=== PATIENT | female | born 1985 | race Caucasian/White ===

== ENCOUNTER 2017-11-19 05:23 | Inpatient (IN) ==
--- NOTE | 2017-11-19 04:47 | OB/GYN History & Physical ---
Date of Encounter: 11/19/17 Time of Encounter: 04:41 Assessment and Plan (1) 37 weeks gestation of Current visit: Yes Status: Acute admitted for labor evaluation (2) Tobacco use affecting in third trimester, antepartum Current visit: Yes Status: Acute Smoking cessation information given History of Present Illness Chief complaint: Contractions HPI: Ms. Lockwood is a 32 year old female at 37w5d presents to labor and delivery with complaints of contractions that started about 2 hours ago that have become stronger in the last 30 min. Patient also reports leaking fluid. Patient reports decreased movement as well. Patient denies VB. Patient reports last SVE was [address] Dinh. Speculum exam on admission per CNM: Negative pooling, negative nitrazine. SVE /-1 with bulging membranes. No fluid return noted with exam. Blood type: A Positive Rubella: Immune Hep B: Nonreactive RPR: Negative GBS: Negative Past Med Surg Social Fam HX - Past Medical History Source: patient Medical history: no medical history Psychiatric history: depression - Past Surgical History Surgical History: appendectomy, other (Dilatation and curettage) - Social History Smoking Status: Current every day smoker Smokeless Tobacco Status: No Alcohol use: none Drug use: none Activity Level: Independent ambulation Recent Out of Country Travel Within the Last 8 Weeks: No Exposure or Possible Exposure to Illness During Travel: No - Family History Mother Living Status: Still Living Hx Family Cardiac Disorders: Yes (MOTHER HAD CERVICAL CANCER) Hx Family Respiratory Disorders: Yes Hx Family Cancer: No Hx Family GI Disorders: No Hx Family Endocrine Disorder: No Hx Family Neuromuscular Disorders: No Hx Family Neurologic Disorders: No Hx Family HEENT Disorders: No Hx Family Autoimmune Disorders: No Obstetrical History - Pregnancies : 3 Para: 2 Term: 2 : 0 Ab's: 0 Livin Medications and Allergies Vit/FA 1 each PO DAILY tablet 01/10/16 [Rx] Oseltamivir [Tamiflu] 75 mg PO BID #10 capsule 08/31/17 [Rx] 3 Allergy/AdvReac Type Severity Reaction Status Date / Time No Known Allergies Allergy Verified 06/06/17 18:36 Review of System OB - Constitutional Constitutional ROS IM: no fever(s), no headache(s) - Cardiovascular Cardiovascular: no chest pain, no leg edema, no palpitations, no syncope - Respiratory Respiratory: no cough - Gastrointestinal Gastrointestinal: no diarrhea, no heartburn, no nausea, no vomiting - Genitourinary Genitourinary: vaginal discharge (per HPI), no abnormal vaginal bleeding, no dysuria, no flank pain, no urinary frequency, no vaginal odor, no vaginal pruritis Exam - Constitutional Constitutional: well developed, well nourished, average body habitus - HEENT HEENT: Normocephaly, Mucus Membranes Moist - Neck Neck exam: full ROM, supple - Lungs Respiratory exam: CTAB - Cardiovascular Cardiovascular exam: RRR, +S1, +S2 - Abdomen Abdomen: Present: bowel sounds normal, gravid, non tender - Extremities Extremities exam: full ROM, normal inspection, pedal edema Deep Tendon Reflex Grade: 2+ Normal - Vagina Vagina: Present: normal moisture - Cervix Cervix: Present: discharge Dilation: 2 Effacement: 80 Station: -1 - Uterus Uterus exam: Present: normal size, normal contour - Anus/Rectum Anus/Rectum: Present: normal perianal skin - Comments Comments: speculum exam: small amount white discharge noted. NO pooling, Negative nitrazine. FHR 145 bpm moderate amount of variability +15x15 accels no decels noted. contractions 2-3 min apart. Cat. 1 tracing. Results All other labs normal. - VTE Reasons for not Prescribing Prophylaxis: Treatment not Indicated - Low risk for VTE
[2017-11-19 05:09] LABS: Amphetamine Screen,Urine Negative ng/mL (Cutoff=1000); Barbiturate Screen,Urine Negative ng/mL (Cutoff=200); Benzodiazepines Screen,Urine Negative ng/mL (Cutoff=200); Cannabinoid Screen,Urine Negative ng/mL (Cutoff = 50); Cocaine Screen,Urine Negative ng/mL (Cutoff= 300); Opiate Screen,Urine Negative ng/mL (Cutoff=300); Phencyclidine Screen,Urine Negative ng/mL (Cutoff=25)
[2017-11-19] MEDS ORDERED: Ondansetron 4 MG/2 ML VIAL IVP PRN (06:11)
[2017-11-19] MEDS ORDERED: *HR* Nalbuphine 20 MG/ML AMPUL IVP PRN (06:11)
[2017-11-19] MEDS ORDERED: Famotidine 20 MG/2 ML VIAL IVP PRN (06:11)
[2017-11-19] MEDS ORDERED: Naloxone 0.4 MG/ML INJ IVP PRN (06:11)
[2017-11-19] MEDS ORDERED: EPHEDrine 50 MG/ML VIAL IVP PRN (06:12)
[2017-11-19] MEDS ORDERED: Epidural Premix (fent/bupiv) 110 ML EP SCH (06:15)
--- NOTE | 2017-11-19 06:17 | OB Labor Progress Note ---
Date of Encounter: 11/19/17 Time of Encounter: 06:15 Labor Progress Note - Subjective Subjective: Patient reports contractions are getting stronger along with the vaginal pressure. - Cervix Cervix: 4.5/90/-1 - Heart Tones Heart Tones: 145 bpm moderate amount of variability +15x15 accels no decels noted. Cat. 1 tracing - [place]: 2-3 min apart - Interventions Interventions: SVE - Plan Plan: Admit for delivery Dr. Dinh notified.
[2017-11-19] MEDS ORDERED: Ringers Solution, Lactated 1,000 ML ONE (06:20)
--- NOTE | 2017-11-19 06:22 | Anesthesia Evaluation PreOp ---
Date of Encounter: 11/19/17 Time of Encounter: 06:21 - Past History Planned Operation: KOFI Cardiac History: Denies any Significant Hx Pulmonary History: Smoker FIRER DIESEL LOCOMOTIVE History: Denies Any Significant HX Other Medical History: Denies Any Significant HX Anesthesia History: No Prior Anesthetic Complications : Yes (37.5 ) Alcohol Use: none Drug use: none Medications and Allergies Vit/FA 1 each PO DAILY tablet 01/10/16 [Rx] 3 Allergy/AdvReac Type Severity Reaction Status Date / Time No Known Allergies Allergy Verified 06/06/17 18:36 - Meds/Allergy Pre-op Review Medications Reviewed: Yes Allergies Reviewed: Yes Beta Blockers on Current Med List: No Anesthesia Exam Height: 1.52m Weight: 71kg NPO (# of Hours): 4 Pain Scale: 6 Pain Scale Used: Numeric (1 - 10) - HEENT Pupil (Motor): Pupils equal Mallampati: II Teeth: Normal Oral Opening: Greater than 3 - FIRER DIESEL LOCOMOTIVE LOC: Oriented FIRER DIESEL LOCOMOTIVE Motor: Normal RUE, Normal LUE, Normal RLE, Normal LLE, Normal Face FIRER DIESEL LOCOMOTIVE Sensory: Normal: RUE, LUE, RLE, LLE, Face - Cardiac Rhythm: Regular Murmur: None JVD: No Carotid Bruit: No - Pulmonary Breath Sounds: bilateral Clear Respiratory Effort: Symmetrical Anesthesia Assess/Plan ASA Score: 2 Modified Elroy Scale for Level of Consciousness: Cooperative, oriented, and tranquil Anesthetic Plan: General (plan b), Regional (plan a) Autologous Blood: Yes Monitoring Plan: Standard Monitors
[2017-11-19 06:49] LABS: Basophils % 0.3 %; Eosinophils # 0.1 K/mcL (0.0-0.6); Eosinophils % 0.5 %; Hematocrit 34.2 % (35.3-44.9); Hemoglobin 11.7 g/dL (11.5-15.4); Immature Granulocytes % 0.5 % (0-4); Lymphocytes % 20.2 %; Mean Corpuscular HGB Conc 34.2 g/dL (31.6-35.5); Mean Corpuscular Hemoglobin 33.9 pg (28.0-33.3); Mean Corpuscular Volume 99.1 fL (83.0-100.0); Mean Platelet Volume 9.8 fL (9.4-12.4); Monocytes # 0.9 K/mcL (0.0-1.3); Neutrophils # 10.8 K/mcL (1.6-8.9); Platelet Count 314 K/mcL (140-400); Red Blood Count 3.45 M/mcL (3.82-4.97); Red Cell Distribution Width 12.6 % (11.5-14.5); Segmented Neutrophils % 72.5 %
[2017-11-19] MEDS ORDERED: *HR* FentaNYL (PF) 100 MCG/2 ML VIAL ONE ×3 (07:36→09:17)
[2017-11-19] MEDS ORDERED: *HR* Ropivacaine/PF 0.2% 20 ML VIAL ONE ×2 (07:36→08:36)
[2017-11-19] MEDS ORDERED: Epidural Premix (fent/bupiv) 110 ML EP ONE ×2 (07:47→09:35)
[2017-11-19] MEDS: Ringers Solution, Lactated 1,000 ML IVC SCH ×2 (07:50→12:40)
--- NOTE | 2017-11-19 09:13 | Anesthesia Procedures ---
Date of Encounter: 11/19/17 Time of Encounter: 07:45 Procedures: Anesthesia - Epidural/Spinal Patient ID/Chart reviewed: Yes Patient examined: Yes OB Eval: : 3 OB Eval: Hx Para: 2 OB Eval: Dilated at (cm): 6 OB Eval: Contractions: Non-stressed pattern Consent Obtained: Yes Supplemental Oxygen: None/Room Air Site Prep: Aseptic Technique, Sterile prep and drape, Povidone-Iodine 1% Patient position: upright Local Anesthetic: Lidocaine 1% Amount of Local Anesthetic used: 6 Touhy Needle Gauge: 18 Touhy Needle Depth (cm): 6 Test Dose (1.5% Lido + Epi): Volume given (mls): 16 Test Dose Result: Positive Loading Dose Administered: Thru Catheter Interspace Used: L2-L3 Loss of Resistance (TAMERA): Yes Blood: Yes CSF: No Paresthesia: No Procedure: First attempt at L3-4 by senior SRNA Kraig Ferris. Attained epidural space easily, first pass. Upon placement of catheter, noted some blood in tubing. Flushed with small amount NS with return of blood to tubing. Catheter pulled. Attemted placement at L4-5, again, easily found epidural space, catheter placed , test dose negative. after lying patient down and starting bolus, blood noted on aspiration and unable to flush tubing. Cathered removed. Attempted placement myself again at L3-4. Again, easily found epidural space, catheter placed, no leonora blood initially, blood tinged. pulled back on catheter, cleared. Test dose negative. Again, noted more blood in tubing upon aspiration on giving bolus. Epidural d/c'd. Attempted myself at L2-3, easily located epidural space, easily placed catheter, blood present in tubing, flushed and cleared. Test dose given and positive result noted. Catheter removed. Dr. Murillo called and down to attempt epidural. Vitals + FHT's: VSS and FHTs stable throughout.
[2017-11-19] MEDS ORDERED: Bupivacaine-MPF 0.25% 10 ML VIAL ONE (09:18)
[2017-11-19] MEDS ORDERED: Oxytocin 20 units/ LR 1000 mL 20 UNIT/1,000 ML BAG IVC ONE (14:16)
--- NOTE | 2017-11-19 15:32 | OB/GYN Procedure Note ---
Delivery - Delivery Date: 11/19/17 Provider: Patricia Pineda Intrapartum events: none Delivery induction: none Delivery augmentation: rupture of membranes Delivery monitor: external FHT, external uterine Anesthesia: epidural Estimated Blood Loss: 100 - (s) Infant A Delivery Date: 11/19/17 Infant Delivery Time: 15:13 Presentation: vertex Position: OA Route of delivery: Gender: Female Viability: Viable Pounds: 6 Ounces: 10 Weight Gram: 3015 kg at 1 minute: 8 at 5 mins: 9 Shoulder Dystocia: not encountered Specimens collected: cord blood Cord: 3 umbilical vessels - Repair Episiotomy: none Laceration Description: None - Complications Delivery complications: none Delivery comments: Patient progressed to complete and under maternal effort a live born female was delivered, vertex, OA via . The head delivered and no nuchal cord was encountered, the shoulders delivered easily, and the body followed. The placenta delivered spontaneously intact. There were no lacerations discovered. EBL 100. Mother and baby stable and bonding in labor and delivery. - Disposition Mom disposition: stable in LDR [place] disposition: stable in LDR
[2017-11-19] MEDS ORDERED: Ibuprofen 600 MG TABLET PO PRN (18:15)
[2017-11-19] MEDS ORDERED: Oxytocin 20 units/ LR 1000 mL 20 UNIT/1,000 ML BAG IVC SCH (18:15)
[2017-11-19] MEDS ORDERED: Acetaminophen 325 MG TABLET PO PRN (18:15)
[2017-11-19] MEDS ORDERED: Benzocaine/Menthol 56 GM AEROSOL SPRAY TP PRN (18:15)
[2017-11-20 05:08] LABS: Basophils % 0.2 %; Eosinophils # 0.1 K/mcL (0.0-0.6); Eosinophils % 0.7 %; Hematocrit 28.8 % (35.3-44.9); Immature Granulocytes % 0.5 % (0-4); Lymphocytes # 3.3 K/mcL (0.6-4.6); Lymphocytes % 24.9 %; Mean Corpuscular HGB Conc 35.1 g/dL (31.6-35.5); Mean Corpuscular Hemoglobin 34.1 pg (28.0-33.3); Mean Corpuscular Volume 97.3 fL (83.0-100.0); Mean Platelet Volume 9.9 fL (9.4-12.4); Monocytes # 0.8 K/mcL (0.0-1.3); Monocytes % 5.7 %; Platelet Count 242 K/mcL (140-400); Red Blood Count 2.96 M/mcL (3.82-4.97); Red Cell Distribution Width 12.7 % (11.5-14.5)
[2017-11-20 05:09] LABS: Hemoglobin 10.1 g/dL (11.5-15.4)
--- NOTE | 2017-11-20 08:54 | Discharge Summary ---
Date of Encounter: 11/20/17 Time of Encounter: 08:50 - Discharge Diagnosis (1) 37 weeks gestation of Priority: Secondary Status: Acute (2) Tobacco use affecting in third trimester, antepartum Priority: Secondary Status: Acute (3) Vaginal delivery Priority: Primary Status: Acute Comments: Continue routine care discharge home today follow up with Dr. Dinh in 4-6 weeks (4) Breast feeding status of mother Priority: Secondary Status: Acute Comments: Difficulty with latching support prn - Discharge Medications Prescriptions: Ibuprofen [Motrin] 600 mg PO Q6HR PRN #60 tablet PRN Reason: Cramping Breast Pump [BREAST PUMP] 1 each .ROUTE AD #1 each Home Medications: Vit/FA 1 each PO DAILY tablet 01/10/16 [Rx] Breast Pump [BREAST PUMP] 1 each .ROUTE AD #1 each 11/20/17 [Rx] Ibuprofen [Motrin] 600 mg PO Q6HR PRN #60 tablet 11/20/17 [Rx] Vit/FA 1 each PO DAILY tablet 11/20/17 [Rx] Allergies/Adverse Reactions: 3 Allergy/AdvReac Type Severity Reaction Status Date / Time No Known Allergies Allergy Verified 06/06/17 18:36 Data Procedures and tests throughout hospitalization: Laboratory Tests 11/19/17 11/19/17 11/20/17 04:55 06:37 04:27 WBC 14.9 H 13.2 H RBC 3.45 L 2.96 L Hgb 11.7 10.1 L D Hct 34.2 L 28.8 L MCV 99.1 97.3 MCH 33.9 H 34.1 H MCHC 34.2 35.1 RDW 12.6 12.7 Plt Count 314 242 MPV 9.8 9.9 Immature Gran % 0.5 0.5 Seg Neutrophils % 72.5 68.0 Lymphocytes % 20.2 24.9 Monocytes % 6.0 5.7 Eosinophils % 0.5 0.7 Basophils % 0.3 0.2 Neutrophils # 10.8 H 9.0 H Lymphocytes # 3.0 3.3 Monocytes # 0.9 0.8 Eosinophils # 0.1 0.1 Basophils # 0.0 0.0 Urine Opiates Screen Negative Ur Barbiturates Screen Negative Ur Phencyclidine Scrn Negative Ur Amphetamines Screen Negative U Benzodiazepines Scrn Negative Urine Cocaine Screen Negative U Marijuana (THC) Screen Negative Labs on day of discharge: Labs from last 24 hours 11/20/17 04:27 WBC 13.2 H RBC 2.96 L Hgb 10.1 L D Hct 28.8 L MCV 97.3 MCH 34.1 H MCHC 35.1 RDW 12.7 Plt Count 242 MPV 9.9 Immature Gran % 0.5 Seg Neutrophils % 68.0 Lymphocytes % 24.9 Monocytes % 5.7 Eosinophils % 0.7 Basophils % 0.2 Neutrophils # 9.0 H Lymphocytes # 3.3 Monocytes # 0.8 Eosinophils # 0.1 Basophils # 0.0 Date of admission: 11/19/17 06:11 Primary care physician: Dorothy Sotelo Discharging clinician: Eryn Amos Anticipated date of discharge: 11/20/17 - Patient Status Disposition: Home, Self-Care Condition: Good Functional capacity at discharge: independent ambulation - Discharge Instructions Follow Up With: Dorothy Sotelo MD [Primary Care Provider] - Rosalino Dinh DO [Partnered Physician] - - Diet and Activity Activity: increase activity as tolerated Diet: regular diet Hospital Course Reason for admission: active labor Delivery: Episiotomy: none Laceration: none complications: none Discharge diagnosis: IUP at term delivered [place] baby: female (breast feeding) Time Attestation: Total time spent providing and/or coordinating discharge services: Time Spent: Less than 30 minutes Exam - Constitutional Vitals: Temp Pulse Resp BP Pulse Ox 98.2 F 88 12 98/63 98 11/20/17 03:20 11/20/17 03:20 11/20/17 03:20 11/20/17 03:20 11/20/17 03:20 General appearance IM: A&O X 3, pleasant, answers questions appropriately - Respiratory Respiratory exam: Present: CTAB - Cardiovascular Cardiovascular exam IM: Present: RRR, +S1, +S2 - GI/Abdominal GI/Abdominal exam IM: normal bowel sounds - Uterine Tone: Firm Uterus Position: 1 Finger Below Umbilicus, Midline - Neurological Exam Neurological exam: alert, oriented X3, reflexes normal
[2017-11-20] MEDS ORDERED: Prenatal Vit/FA 1 EACH TABLET PO SCH (09:00)
[2017-11-20 09:47] VITALS: BP 98/63
== END 2017-11-20 17:30 | disposition home or self-care (01) | DRG 560 ==
LOC: 1NENULAB → 1NENUOBS 18:18
PROVIDERS: ADMIT Advanced Practice Midwife; ATTEND Advanced Practice Midwife